=== PATIENT | male | born 1945 ===

== ENCOUNTER 2024-11-08 05:24 | Day surgery (SDC) | payer OTHER ==
[2024-11-04 07:47] VITALS: BP 154/93
[2024-11-04 08:00] LABS: URINE APPEARANCE Clear; URINE BILIRRUBIN Negative (NEGATIVE); URINE BLOOD Small; URINE COLOR Yellow; URINE GLUCOSE Negative (NEGATIVE); URINE KETONE Trace (NEGATIVE); URINE LEUKOCYTE Negative; URINE NITRATE Negative; URINE PROTEIN Negative (NEGATIVE); URINE UROBILINOGEN 0.2 E.U./dl
[2024-11-04 08:02] LABS: HEMATOCRIT 40.3 % (39.0-48.0); HEMOGLOBIN 13.7 g/dL (13-16.00); MEAN CELL VOLUME 89.3 fL (80.0-100.00); MEAN CORPUSCULAR HEMOGLOBIN 30.3 pg (27.00-32.0); MEAN CORPUSCULAR HGB CONC 33.9 g/dl (32.0-36.0); PLATELET COUNT 170 K/uL (150-450); RED BLOOD COUNT 4.51 M/uL (4.00-6.00); RED CELL DISTRIBUTION WIDTH 14.5 % (11.5-14.5)
[2024-11-04 08:04] LABS: URINE BACTERIA 9.7 uL (0.0-1933); URINE EPITHELIAL CELLS 1.7 uL (0.0-38.8); URINE RBC 23.5 uL (0.0-20.8); URINE WBC 3.4 uL (0.0-23.2)
[2024-11-04 08:53] LABS: ALBUMIN 3.6 gm/dL (3.4-5.0); BILIRUBIN TOTAL 0.62 mg/dL (0.3-1.2); CALCIUM 9.1 mg/dL (8.5-10.1); CREATININE SERUM 0.76 mg/dL (0.70-1.30); GFR 99.19; GLOBULINA 3.4 G/DL (2.4-3.5); POTASSIUM 3.86 mEq/L (3.5-5.1)
[2024-11-04 09:14] LABS: PROTHROMBIN TIME 10.9 SECONDS (9.0-11.5)
[2024-11-04 09:27] LABS: PARTIAL THROMBOPLASTIN TIME 55.2 SECONDS (22.0-34.0)
[~2024-11-08] VITALS: Ht 167.6 cm; Wt 90.7 kg
[~2024-11-08 05:24] MED LIST: 0
[2024-11-08] MEDS ORDERED: POVIDONE-IODINE 118 ML BOTT TOP ONE (11:21)
[2024-11-08] MEDS ORDERED: EPINEPHRINE HCL/PF 1 MG/ML AMPUL ONE (11:44)
[2024-11-08] MEDS ORDERED: DEXAMETHASONE SODIUM PHOSPHATE 4 MG/ML VIAL ONE (11:44)
[2024-11-08] MEDS ORDERED: BUPIVACAINE HCL/MPF 0.5% 30ML VIAL ONE (11:44)
[2024-11-08] MEDS ORDERED: LIDOCAINE HCL 1%/EPINEPHRINE 20ML VIAL IJ ONE (11:45)
[2024-11-08] MEDS ORDERED: PIPERACILLIN/TAZOBACTAM SODIUM 3.375 GM VIAL IV ONE (13:41)
[2024-11-08 18:07] VITALS: O2SAT 100
[2024-11-09 14:51] VITALS: BP 155/90
== END 2024-11-08 16:55 | disposition home or self-care (01) ==
LOC: CIR.AMB 05:24
PROVIDERS: ATTEND Otolaryngology
DX: H72.01 Central perforation of tympanic membrane, right ear (principal); H74.11 Adhesive right middle ear disease; H90.0 Conductive hearing loss, bilateral